=== PATIENT | male | born 1990 | race Two or more races ===

== ENCOUNTER 2019-04-15 00:06 | Emergency (ER) | payer MEDICAID, OTHER ==
[~2019-04-15] VITALS: Ht 193 cm; Wt 90.7 kg
[2019-04-15 00:36] VITALS: BP 147/96
[2019-04-15] MEDS ORDERED: cefTRIAXone SOD 1,000 MG VL IM ONE (04:45)
[2019-04-15] MEDS ORDERED: SULFAMETHOX W/TRIMETH(800/160MG) DS TAB PO ONE (04:45)
[2019-04-15] MEDS ORDERED: LIDOCAINE 2%HCL (LOCAL ANESTH.) INJ 10ml MDV IJ ONE (04:45)
[2019-04-15] MEDS ORDERED: LIDOCAINE 1% HCL (LOCAL ANESTH.) INJ 20ML MDV ID ONE (05:00)
== END 2019-04-15 05:57 | disposition home or self-care (01) ==
LOC: ER 00:06
DX: L02.416 Cutaneous abscess of left lower limb (principal)
CPT/HCPCS: 10060; 96372; 99283; J0696; J2001

== ENCOUNTER 2019-08-06 10:04 | Emergency (ER) | payer SELFPAY ==
[~2019-08-06] VITALS: Ht 177.8 cm; Wt 146.1 kg
[2019-08-06 10:17] VITALS: BP 124/86
[2019-08-06] MEDS ORDERED: KETOROLAC TROMETH 60MG/2ML VIAL IM ONE (11:15)
== END 2019-08-06 11:56 | disposition home or self-care (01) ==
LOC: ER 10:04
DX: S39.012A Strain of muscle, fascia and tendon of lower back, initial encounter (principal); M54.42 Lumbago with sciatica, left side; X50.9XXA Other and unspecified overexertion or strenuous movements or postures, initial encounter; Y93.89 Activity, other specified; Y92.89 Other specified places as the place of occurrence of the external cause; Y99.8 Other external cause status
CPT/HCPCS: 72100; 96372; 99283; J1885

== ENCOUNTER 2022-04-18 06:26 | Emergency (ER) | payer MEDICAID, OTHER ==
[~2022-04-18] VITALS: Ht 172.7 cm; Wt 136.1 kg
[2022-04-18 07:15] VITALS: BP 138/72
[2022-04-18] MEDS ORDERED: IBUPROFEN 800 MG TAB PO ONE (07:15)
== END 2022-04-18 07:38 | disposition home or self-care (01) ==
LOC: ER 06:26
DX: H66.92 Otitis media, unspecified, left ear (principal); H60.92 Unspecified otitis externa, left ear; E66.01 Morbid (severe) obesity due to excess calories; Z68.42 Body mass index [BMI] 45.0-49.9, adult

== ENCOUNTER 2022-12-03 22:40 | Emergency (ER) | payer MEDICAID ==
[~2022-12-03] VITALS: Ht 177.8 cm; Wt 80.0 kg
[2022-12-04] MEDS ORDERED: AMOX-277 PO (02:52)
[2022-12-04] MEDS ORDERED: PRED20TA2 PO (02:52)
[2022-12-04] MEDS ORDERED: cefTRIAXone SOD 1,000 MG VL IM ONE (03:00)
[2022-12-04] MEDS ORDERED: methylPREDNISolone SOD SUCC 125 MG/2 ML VL IM ONE (03:00)
[2022-12-04 03:48] VITALS: BP 139/88
== END 2022-12-04 03:48 | disposition home or self-care (01) ==
LOC: ER 22:40
DX: J02.0 Streptococcal pharyngitis (principal)
CPT/HCPCS: 87880; 96372; 99284; J0696; J2930